=== PATIENT | female | born 1965 | race Caucasian/White ===

== ENCOUNTER 2021-11-27 15:59 | Outpatient (CLI) | payer OTHER | END 2021-11-27 16:00 | disposition home or self-care (01) | LOC: CTENTCT 15:59 | PROVIDERS: ATTEND Student in an Organized Health Care Education/Training Program | DX: J32.9 Chronic sinusitis, unspecified (principal) | CPT/HCPCS: 70486 ==

== ENCOUNTER 2022-06-19 16:20 | Outpatient (CLI) | payer OTHER | END 2022-06-19 16:21 | disposition home or self-care (01) | LOC: LABBT 16:20 | PROVIDERS: ATTEND Student in an Organized Health Care Education/Training Program | DX: Z01.818 Encounter for other preprocedural examination (principal); J34.3 Hypertrophy of nasal turbinates; J32.0 Chronic maxillary sinusitis; J32.2 Chronic ethmoidal sinusitis; J34.2 Deviated nasal septum; J33.9 Nasal polyp, unspecified; R09.81 Nasal congestion; Z20.822 Contact with and (suspected) exposure to COVID-19 | CPT/HCPCS: 87811; 93005; 93010 ==

== ENCOUNTER 2022-06-24 09:59 | Day surgery (SDC) | payer OTHER ==
[2022-06-20 10:30] VITALS: BMI 26.6
[2022-06-24] MEDS ORDERED: Oxymetazoline HCl 0.05% (30 ML BOT) ONE ×2 (10:31→12:01)
[2022-06-24] MEDS ORDERED: Midazolam HCl 2 mg/2 ml Vial ONE (11:10)
[2022-06-24] MEDS ORDERED: Scopolamine 1.5 mg/72 hour Patch ONE (11:11)
[2022-06-24] MEDS ORDERED: Bacitracin Zinc Ointment 30 gm TUBE ONE (12:01)
[2022-06-24] MEDS ORDERED: EPINEPHrine 1 MG/ML AMP ONE (12:01)
[2022-06-24] MEDS ORDERED: Lidocaine 1% w/Epinephrine 1:100K 20 ML VIAL ONE (12:01)
[2022-06-24] MEDS ORDERED: fentaNYL Citrate/PF 100 MCG/2 ML SYRINGE ONE (12:02)
[2022-06-24] MEDS ORDERED: Propofol 1,000 MG/100 ML VIAL IV ONE (12:09)
[2022-06-24] MEDS ORDERED: Sodium Chloride 0.9% 100 ML ONE (12:13)
[2022-06-24] MEDS ORDERED: CEFAZOLIN 2 GM VIAL ONE (12:13)
[2022-06-24] MEDS ORDERED: PROPOFOL 200 MG/20 ML VIAL ONE (12:29)
[2022-06-24] MEDS ORDERED: Dexamethasone 20 MG/5 ML VIAL ONE (12:29)
[2022-06-24] MEDS ORDERED: Glycopyrrolate 0.2 MG/ML 5 ML SYRINGE ONE (12:29)
[2022-06-24] MEDS ORDERED: Rocuronium Bromide 10 MG/ML (10ML VIAL) ONE (12:29)
[2022-06-24] MEDS ORDERED: Ondansetron PF 4 MG/2 ML Vial ONE (12:29)
[2022-06-24] MEDS ORDERED: Lidocaine 1% PF 5 ML VIAL ONE (12:29)
[2022-06-24] MEDS ORDERED: hydrALAZINE 20 MG/ML VIAL ONE (13:34)
[2022-06-24] MEDS ORDERED: Triamcinolone 40 MG/ML VIAL ONE (14:30)
[2022-06-24] MEDS ORDERED: Fentanyl 100 MCG/2 ML VIAL ONE (16:13)
== END 2022-06-24 18:00 | disposition home or self-care (01) ==
LOC: SDC 09:59
PROVIDERS: ATTEND Student in an Organized Health Care Education/Training Program
PROC: 09TU8ZZ Resection of Right Ethmoid Sinus, Via Natural or Artificial Opening Endoscopic (ICD-10-PCS; principal; 2022-06-24)
PROC: 09BQ8ZZ Excision of Right Maxillary Sinus, Via Natural or Artificial Opening Endoscopic (ICD-10-PCS; principal; 2022-06-24)
PROC: 09BW8ZZ Excision of Right Sphenoid Sinus, Via Natural or Artificial Opening Endoscopic (ICD-10-PCS; principal; 2022-06-24)
PROC: 8E09XBZ Computer Assisted Procedure of Head and Neck Region (ICD-10-PCS; principal; 2022-06-24)
PROC: 09BR8ZZ Excision of Left Maxillary Sinus, Via Natural or Artificial Opening Endoscopic (ICD-10-PCS; principal; 2022-06-24)
PROC: 09BX8ZZ Excision of Left Sphenoid Sinus, Via Natural or Artificial Opening Endoscopic (ICD-10-PCS; principal; 2022-06-24)
PROC: 09BT8ZZ Excision of Left Frontal Sinus, Via Natural or Artificial Opening Endoscopic (ICD-10-PCS; principal; 2022-06-24)
PROC: 09BS8ZZ Excision of Right Frontal Sinus, Via Natural or Artificial Opening Endoscopic (ICD-10-PCS; principal; 2022-06-24)
PROC: 09TV8ZZ Resection of Left Ethmoid Sinus, Via Natural or Artificial Opening Endoscopic (ICD-10-PCS; principal; 2022-06-24)
DX: J32.8 Other chronic sinusitis (principal); J33.8 Other polyp of sinus; J34.3 Hypertrophy of nasal turbinates; J34.2 Deviated nasal septum; Z88.1 Allergy status to other antibiotic agents
CPT/HCPCS: 87070; 87205; J0171; J0360; J0690; J1100; J2250; J2405; J2704; J3010; J3301; J3490

== ENCOUNTER 2022-09-10 14:29 | Outpatient (CLI) | payer OTHER ==
[2022-09-10 15:54] LABS: #Basophils 0.1 10x3/uL (0.0-0.2); #Eosinphils 0.1 10x3/uL (0.0-0.5); #Monocytes 0.5 10x3/uL (0.0-1.1); #Neutrophils 5.3 10x3/uL (1.5-8.4); %Basophils 0.7 % (0.0-2.0); %Lymphocytes 17.2 % (18.0-47.0); Hemoglobin 13.8 g/dL (12.0-15.5); Mean Corpuscular HGB CONC 33.3 g/dL (32.0-36.0); Mean Corpuscular Hemoglobin 28.2 pg (27.0-33.0); Mean Corpuscular Volume 84.9 fl (81.6-98.3); Mean Platelet Volume 10.6 fl (7.4-10.4); Platelet Count 319 10x3/uL (150-450); RBC Distribution Width 13.4 % (11.5-14.5); Red Blood Cell (RBC) Count 4.89 10x6/uL (3.90-5.03); White Blood Cell (WBC) Count 7.2 10x3/uL (3.5-10.5)
[2022-09-10 16:17] LABS: ALT (SGPT) 16 U/L (8-55); AST (SGOT) 15 U/L (5-34); Albumin 4.4 g/dL (3.5-5.0); Alkaline Phosphatase 79 U/L (40-110); Anion Gap 14 mmol/L (10-20); BUN (Urea Nitrogen) 15 mg/dL (9.8-20.1); Bilirubin, Direct 0.1 mg/dL (0.1-0.3); Bilirubin, Total 0.4 mg/dL (0.2-1.2); Calc. Creatinine Clearance 0 mL/min (70-130); Calcium 9.8 mg/dL (7.8-10.44); Carbon Dioxide 27 mmol/L (22-29); Chloride 105 mmol/L (98-107); Estimated GFR 95; Glucose 104 mg/dL (70-105); Potassium 4.1 mmol/L (3.5-5.1); Protein, Total 6.5 g/dL (6.0-8.3); Sodium 142 mmol/L (136-145)
== END 2022-09-10 14:30 | disposition home or self-care (01) ==
LOC: LABBT 14:29
PROVIDERS: ATTEND Surgery
DX: Z01.812 Encounter for preprocedural laboratory examination (principal); Z20.822 Contact with and (suspected) exposure to COVID-19
CPT/HCPCS: 80048; 80076; 85025; 87811

== ENCOUNTER 2022-09-12 09:55 | Day surgery (SDC) | payer BC, OTHER ==
[2022-09-11 10:34] VITALS: BMI 25.8
[2022-09-12] MEDS ORDERED: Sodium Chloride 0.9% 100 ML ONE (10:52)
[2022-09-12] MEDS ORDERED: cefOXitin 2 GM VIAL ONE (10:52)
[2022-09-12] MEDS ORDERED: Scopolamine 1.5 mg/72 hour Patch ONE (11:16)
[2022-09-12] MEDS ORDERED: fentaNYL Citrate/PF 100 MCG/2 ML SYRINGE ONE (11:23)
[2022-09-12] MEDS ORDERED: Propofol 1,000 MG/100 ML VIAL IV ONE (11:32)
[2022-09-12] MEDS ORDERED: Bupivacaine 0.25% HCL 30 ML VIAL ONE (11:46)
[2022-09-12] MEDS ORDERED: EPINEPHrine 1 MG/ML AMP ONE (11:46)
[2022-09-12] MEDS ORDERED: Ondansetron PF 4 MG/2 ML Vial ONE (12:17)
[2022-09-12] MEDS ORDERED: NEOSTIGMINE 3 MG/3 ML SYR 3 MG/3 ML SYRINGE ONE (12:17)
[2022-09-12] MEDS ORDERED: Glycopyrrolate 0.2 MG/ML 5 ML SYRINGE ONE (12:17)
[2022-09-12] MEDS ORDERED: Dexamethasone 20 MG/5 ML VIAL ONE (12:17)
[2022-09-12] MEDS ORDERED: Rocuronium Bromide 10 MG/ML (10ML VIAL) ONE (12:17)
[2022-09-12] MEDS ORDERED: PROPOFOL 200 MG/20 ML VIAL ONE (12:17)
[2022-09-12] MEDS ORDERED: Ketorolac Tromethamine 30 MG/ML VIAL ONE (12:17)
[2022-09-12] MEDS ORDERED: Fentanyl 100 MCG/2 ML VIAL ONE (13:11)
[2022-09-12] MEDS ORDERED: Meperidine HCl/PF 25 MG/ML VIAL ONE (13:11)
[2022-09-12] MEDS ORDERED: Promethazine HCl 25 MG/ML VIAL ONE (13:14)
[2022-09-12] MEDS ORDERED: HYDROcodone/Acetaminophen 5/325 mg Tablet ONE (14:23)
== END 2022-09-12 14:57 | disposition home or self-care (01) ==
LOC: SDC 09:55
PROVIDERS: ATTEND Surgery
PROC: 0FT44ZZ Resection of Gallbladder, Percutaneous Endoscopic Approach (ICD-10-PCS; principal; 2022-09-12)
DX: K80.10 Calculus of gallbladder with chronic cholecystitis without obstruction (principal); I10 Essential (primary) hypertension; Z79.899 Other long term (current) drug therapy; Z88.1 Allergy status to other antibiotic agents
CPT/HCPCS: 88304; C1889; J0171; J0694; J1100; J1885; J2175; J2405; J2550; J2704; J3010; J3490; S0020

== ENCOUNTER 2023-08-11 13:05 | Outpatient (CLI) | payer BC, OTHER | END 2023-08-11 13:06 | disposition home or self-care (01) | LOC: RAD 13:05 | PROVIDERS: ATTEND Family Medicine | DX: R05.9 Cough, unspecified (principal) | CPT/HCPCS: 71046 ==

== ENCOUNTER 2024-09-13 14:06 | Outpatient (CLI) | payer OTHER | END 2024-09-13 14:07 | disposition home or self-care (01) | LOC: BICMAMMO 14:06 | PROVIDERS: ATTEND Family Medicine | DX: Z12.31 Encounter for screening mammogram for malignant neoplasm of breast (principal); Z80.3 Family history of malignant neoplasm of breast; Z98.890 Other specified postprocedural states | CPT/HCPCS: 77063; 77067 ==

== ENCOUNTER 2024-11-08 12:06 | Outpatient (CLI) | payer OTHER | END 2024-11-08 12:07 | disposition home or self-care (01) | LOC: ULT 12:06 | PROVIDERS: ATTEND Family Medicine | DX: R22.1 Localized swelling, mass and lump, neck (principal); R22.9 Localized swelling, mass and lump, unspecified; R22.32 Localized swelling, mass and lump, left upper limb; N63.32 Unspecified lump in axillary tail of the left breast | CPT/HCPCS: 76536; 76999 ==

== ENCOUNTER 2025-09-14 11:11 | Outpatient (CLI) | payer BC, OTHER | END 2025-09-14 11:12 | disposition home or self-care (01) | LOC: BICMAMMO 11:11 | PROVIDERS: ATTEND Family Medicine | DX: Z12.31 Encounter for screening mammogram for malignant neoplasm of breast (principal); Z80.3 Family history of malignant neoplasm of breast; Z98.890 Other specified postprocedural states | CPT/HCPCS: 77063; 77067 ==